=== PATIENT | male | born 1960 | race Caucasian/White ===

== ENCOUNTER 2020-10-09 05:41 | Inpatient (IN) | payer BC ==
[2020-10-09] MEDS: Nozin Nasal Sanitizer NASBOTH SCH ×3 (06:47→20:57)
[2020-10-09] MEDS ORDERED: Povidone-Iodine 10% Soln 118.25 ML Bottle ONE (06:47)
[2020-10-09] MEDS: Lactated Ringers 1,000 ML IV SCH ×2 (06:48→10:04)
[2020-10-09] MEDS ORDERED: fentaNYL 100 MCG/2 ML SDV ONE (07:19)
[2020-10-09] MEDS ORDERED: Propofol 200 MG/20 ML SDV ONE ×3 (07:19→09:02)
[2020-10-09] MEDS ORDERED: Midazolam 1 MG/ML 2 ML SDV ONE (07:19)
[2020-10-09] MEDS ORDERED: ceFAZolin 2 GM in Premix Bag 1 BAG IV ONE (07:30)
[2020-10-09] MEDS ORDERED: ePHEDrine 50 MG/ML SDV ONE (08:44)
[2020-10-09] MEDS ORDERED: Ondansetron 4 MG/2 ML SDV IVPUSH PRN (09:36)
[2020-10-09] MEDS ORDERED: Acetaminophen/HYDROcodone 325-5 MG Tab PO PRN (09:36)
[2020-10-09] MEDS ORDERED: Morphine 2 MG/ML SYRINGE IV PRN (09:36)
[2020-10-09] MEDS ORDERED: Acetaminophen 325 MG Tab PO PRN (09:36)
[2020-10-09] MEDS ORDERED: Magnesium Hydroxide 400 MG/5 ML Susp 30 ML Cup PO PRN (09:36)
[2020-10-09] MEDS ORDERED: ceFAZolin 1 GM in Sodium Chloride 0.9% 50 ML IV SCH (09:45)
[2020-10-09] MEDS ORDERED: Sodium Chloride 0.9% 1,000 ML IV SCH (09:45)
[2020-10-09] MEDS ORDERED: Colchicine 0.6 MG Tab PO PRN ×2 (09:47→10:28)
[2020-10-09] MEDS ORDERED: Ketorolac 30 MG/ML SDV IVPUSH SCH (10:00)
[2020-10-09] MEDS: Acetaminophen/oxyCODONE 325-5 MG Tab PO PRN ×3 (10:39→20:57)
--- NOTE | 2020-10-09 11:11 | CR ---
Pelvis 1V or 2V CLINICAL HISTORY: Left hip arthroplasty FINDINGS: Patient is status post the left hip total arthroplasty. Components appear well seated. There is some intra-articular and subcutaneous air. IMPRESSION: Status post total left hip arthroplasty
[2020-10-09] MEDS: Ketorolac 30 MG/ML SDV IVPUSH SCH ×2 (11:35→19:33)
[2020-10-09] MEDS: ceFAZolin 1 GM in Premix Bag 1 BAG IV SCH ×2 (13:08→21:04)
[2020-10-09] MEDS: Sodium Chloride 0.9% 1,000 ML IV SCH (18:14)
[2020-10-10] MEDS: Ketorolac 30 MG/ML SDV IVPUSH SCH ×2 (03:20→11:02)
[2020-10-10] MEDS: Sodium Chloride 0.9% 1,000 ML IV SCH (03:21)
[2020-10-10] MEDS: ceFAZolin 1 GM in Premix Bag 1 BAG IV SCH (06:17)
[2020-10-10] MEDS: Acetaminophen/oxyCODONE 325-5 MG Tab PO PRN (06:18)
[2020-10-10] MEDS: Nozin Nasal Sanitizer NASBOTH SCH (08:21)
[2020-10-10] MEDS ORDERED: Atenolol 25 MG Tab PO SCH (09:00)
[2020-10-10] MEDS ORDERED: Non-Formulary Medication 1 Each (Allopurinol [Zyloprim] 300 MG) PO SCH (09:00)
[2020-10-10] MEDS ORDERED: Enoxaparin 40 MG/0.4 ML Syringe SUBCUT SCH ×2 (09:00)
[2020-10-10] MEDS ORDERED: Non-Formulary Medication 1 Each (Atenolol [Atenolol] 100 MG) PO SCH (09:00)
[2020-10-10] MEDS ORDERED: Allopurinol 100 MG Tab PO SCH (09:00)
[2020-10-10] MEDS ORDERED: Docusate Sodium 100 MG Cap PO SCH ×2 (09:00)
--- NOTE | 2020-10-10 16:20 | PCM.DCSUM1 ---
Discharge Summary - Hospital Course HPI Initial Comments: 60 year old with severe left osteoarthritis admitted for total hip arthroplasty. Diagnosis: Stroke: No Modified [place] Scale: No Symptoms at All Modified [place] Scale Score: 0 - Discharge Data Discharge Date: 10/10/20 Discharge Disposition: Home, Self-Care 01 Condition: Good - Referral to Home Health Date of Face to Face Encounter: 10/10/20 Primary Care Physician: Adonis Moreno MD - Patient Summary/Data Operative Procedure(s) Performed: Left total hip Complications: None Consults: Consultations 10/09/20 09:36 PT Evaluation and Treatment [CONS] Routine Please Evaluate and Treat. PT Reason for Consult: Ambulation Discharge Disposition: Home w Home Health Special Instructions: posterior hip precautions, WBAT This query below is only for informational purposes and is not editable. 10/09/20 09:37 Consult to Case Management/Saw Offbearer [CONS] Routine Comment: Physician Instructions: Discharge placement post hip surgery Service(s) to be Consulted: Case Management PT Evaluation and Treatment [CONS] Routine Please Evaluate and Treat. PT Reason for Consult: Post op Ortho Surgery Hip Pending Discharge: Yes, 2- -3 days Special Instructions: Schedule first outpatient P.T. appointment 3 - 5 days post discharge This query below is only for informational purposes and is not editable. 10/09/20 09:43 OT Evaluation and Treatment [CONS] Routine Please Evaluate and Treat. OT Reason for Consult: ADL's Special Instructions: Status post Hip Surgery This query below is only for informational purposes and is not editable. Hospital Course: Underwent left total hip arthroplasty with no complications, tolerated the procedure well. No problems post op other than a transitory low urine output. Was ambulating the day of surgery. Did very well POD#1 and was independent getting out of bed and was able to do stairs with PT. Pain was controlled with po meds. Manzo removed morning of POD #1, voiding without a problem afterward. Dressing was changed prior to discharge, no drainage or other complications. May shower in AM. Discharged to home with home exercise program. Aspirin 325mg bid for DVT prophylaxis. Follow up in 2 weeks. - Patient Instructions Diet: Usual Diet as Tolerated Activity: Apply Ice, Full Weight Bearing Showering/Bathing: May Shower Wound/Incision Care: Keep Operative Site/Wound Site Clean and Dry Notify Provider of: Fever, Increased Pain, Swelling and Redness, Drainage - Discharge Plan *PRESCRIPTION DRUG MONITORING PROGRAM REVIEWED*: No *COPY OF PRESCRIPTION DRUG MONITORING REPORT IN PATIENT ANA: No Prescriptions/Med Rec: oxyCODONE HCl/Acetaminophen [Percocet 5-325 mg Tablet] 1 - 2 each PO Q6HR PRN #40 tablet PRN Reason: Pain Home Medications: Home Meds Acetaminophen [Tylenol Extra Strength] 500 mg PO Q6H PRN 06/12/20 [History] Colchicine 0.6 mg PO . DIRECTED PRN 06/12/20 [History] allopurinoL [Zyloprim] 300 mg PO DAILY 06/12/20 [History] atenoloL [Atenolol] 100 mg PO DAILY 06/12/20 [History] oxyCODONE HCl/Acetaminophen [Percocet 5-325 mg Tablet] 1 - 2 each PO Q6HR PRN #40 tablet 10/10/20 [Rx] Oxygen Therapy Mode: Room Air Referrals: Jessee Carrington MD [Physician] - 10/24/20 10:30 am ([facility] at the ER desk and arrive 15 minutes early.) - Discharge Summary/Plan Comment DC Time >30 min.: No - General Info Functional Status: Reports: Pain Controlled, Tolerating Diet, Ambulating, Urinating - Review of Systems General: Reports: No Symptoms HEENT: Reports: No Symptoms Pulmonary: Reports: No Symptoms Cardiovascular: Reports: No Symptoms Gastrointestinal: Reports: No Symptoms Genitourinary: Reports: No Symptoms Musculoskeletal: Reports: Leg Pain Skin: Reports: No Symptoms Neurological: Reports: No Symptoms Psychiatric: Reports: No Symptoms - Patient Data Vitals - Most Recent: Last Vital Signs Temp 36.4 C 10/10/20 10:59 Pulse 71 10/10/20 10:59 Resp 16 10/10/20 10:59 BP 109/63 10/10/20 10:59 Pulse Ox 98 10/10/20 10:59 Weight - Most Recent: 133.039 kg I&O - Last 24 hours: Intake & Output 10/10/20 10/10/20 10/10/20 06:59 14:59 22:59 Intake Total 1434 870 Output Total 900 400 Balance 534 470 Lab Results - Last 24 hrs: Laboratory Results - last 24 hr 10/10/20 Range/Units 05:52 WBC 8.4 (4.5-11.0) K/uL RBC 3.23 L (4.30-5.90) M/uL Hgb 9.6 L (12.0-15.0) g/dL Hct 31.6 L (40.0-54.0) % MCV 98 (80-98) fL MCH 30 (27-31) pg MCHC 30 L (32-36) % Plt Count 192 (150-400) K/uL Med Orders - Current: Current Medications Discontinued Medications Acetaminophen (Tylenol) 650 mg PO Q4H PRN PRN Reason: Pain/Fever Hydrocodone Bitart/Acetaminophen (Ellis 325-5 Mg) 2 tab PO Q4H PRN PRN Reason: Pain (mild 1-3) Allopurinol (Zyloprim) 300 mg PO DAILY [facility] Last Admin: 10/10/20 08:24 Dose: 300 mg Documented by: Aspirin (Ecotrin) 325 mg PO BID [facility] Atenolol (Tenormin) 100 mg PO DAILY [facility] Last Admin: 10/10/20 08:23 Dose: 100 mg Documented by: Bandage/Support Products ( Nasal Carbonating Stone Cleaner) 1 applic NASBOTH BID [facility] Last Admin: 10/09/20 13:03 Dose: Not Given Documented by: Bandage/Support Products ( Nasal Carbonating Stone Cleaner) 1 applic NASBOTH BID [facility] Stop: 10/16/20 21:01 Last Admin: 10/10/20 08:21 Dose: 1 applic Documented by: Colchicine (Colcrys) 0.6 mg PO . DIRECTED PRN PRN Reason: Other Colchicine (Colcrys) 0.6 - 1.2 mg PO ASDIRECTED PRN PRN Reason: Other Docusate Sodium (Colace) 100 mg PO DAILY [facility] Docusate Sodium (Colace) 100 mg PO DAILY [facility] Last Admin: 10/10/20 08:22 Dose: 100 mg Documented by: Enoxaparin Sodium (Lovenox) 40 mg SUBCUT DAILY [facility] Enoxaparin Sodium (Lovenox) 40 mg SUBCUT DAILY [facility] Last Admin: 10/10/20 08:23 Dose: 40 mg Documented by: Ephedrine Sulfate (Ephedrine Sulfate) Confirm Administered Dose 50 mg .ROUTE .STK-MED ONE Stop: 10/09/20 08:45 Fentanyl (Sublimaze) Confirm Administered Dose 100 mcg .ROUTE .STK-MED ONE Stop: 10/09/20 07:20 Cefazolin Sodium/Dextrose 2 gm (/ Premix) 50 mls @ 100 mls/hr IV ONETIME ONE Stop: 10/09/20 07:59 Last Admin: 10/09/20 07:41 Dose: 100 mls/hr Documented by: Lactated Ringer's (Ringers, Lactated) 1,000 mls @ 75 mls/hr IV ASDIRECTED [facility] Last Admin: 10/09/20 10:04 Dose: 75 mls/hr Documented by: Sodium Chloride (Normal Saline) 1,000 mls @ 125 mls/hr IV ASDIRECTED [facility] Cefazolin Sodium 1 gm/ Sodium (Chloride) 50 mls @ 200 mls/hr IV Q8H [facility] Stop: 10/10/20 01:59 Last Admin: 10/09/20 13:04 Dose: Not Given Documented by: Sodium Chloride (Normal Saline) 1,000 mls @ 125 mls/hr IV ASDIRECTED [facility] Last Admin: 10/10/20 03:21 Dose: 125 mls/hr Documented by: Cefazolin Sodium/Dextrose 1 gm (/ Premix) 50 mls @ 200 mls/hr IV Q8H [facility] Stop: 10/10/20 06:14 Last Admin: 10/10/20 06:17 Dose: 200 mls/hr Documented by: Ketorolac Tromethamine (Toradol) 30 mg IVPUSH Q8H [facility] Stop: 10/14/20 09:46 Last Admin: 10/09/20 13:04 Dose: Not Given Documented by: Ketorolac Tromethamine (Toradol) 30 mg IVPUSH Q8H [facility] Stop: 10/14/20 12:01 Last Admin: 10/10/20 11:02 Dose: 30 mg Documented by: Magnesium Hydroxide (Milk Of Magnesia) 30 ml PO Q6H PRN PRN Reason: Stool Softener Midazolam HCl (Versed 1 Mg/Ml) Confirm Administered Dose 2 mg .ROUTE .STK-MED ONE Stop: 10/09/20 07:20 Morphine Sulfate (Morphine) 2 mg IV Q1H PRN PRN Reason: Breakthrough Pain Non-Formulary Medication (Allopurinol [Zyloprim]) 300 mg PO DAILY [facility] Non-Formulary Medication (Atenolol [Atenolol]) 100 mg PO DAILY [facility] Ondansetron HCl (Zofran) 4 mg IVPUSH Q6H PRN PRN Reason: Nausea/Vomiting Oxycodone/Acetaminophen (Percocet 325-5 Mg) 0 tab PO Q6H PRN PRN Reason: Pain (moderate 4-6) Last Admin: 10/10/20 06:18 Dose: 2 tab Documented by: Povidone Iodine (Betadine 10% Soln) Confirm Administered Dose 1 ml .ROUTE .STK- MED ONE Stop: 10/09/20 06:48 Last Admin: 10/09/20 08:33 Dose: 30 ml Documented by: Propofol (Diprivan 20 Ml) Confirm Administered Dose 200 mg .ROUTE .STK-MED ONE Stop: 10/09/20 07:20 Propofol (Diprivan 20 Ml) Confirm Administered Dose 200 mg .ROUTE .STK-MED ONE Stop: 10/09/20 09:03 Propofol (Diprivan 20 Ml) Confirm Administered Dose 200 mg .ROUTE .STK-MED ONE Stop: 10/09/20 09:03 - Exam General: Reports: Alert, Oriented HEENT: Reports: Pupils Equal, Pupils Reactive, EOMI, Mucous Membr. Moist/[place] Neck: Reports: Supple Lungs: Reports: Clear to Auscultation, Normal Respiratory Effort Cardiovascular: Reports: Regular Rate, Regular Rhythm GI/Abdominal Exam: Normal Bowel Sounds, Soft, Non-Tender, No Distention (Male) Exam: Deferred Rectal (Males) Exam: Deferred Back Exam: Reports: Normal Inspection Extremities: Leg Pain, Limited Range of Motion Skin: Reports: Warm, Dry Wound/Incisions: Reports: Healing Well, No Drainage Neurological: Reports: No New Focal Deficit Psy/Mental Status: Reports: Alert, Normal Affect, Normal Mood
[2020-10-10] MEDS ORDERED: Aspirin 325 MG Tab.EC PO SCH (21:00)
--- NOTE | 2020-10-16 16:03 | OR ---
DATE OF PROCEDURE: 10/09/2020 SURGEON: Jessee Carrington MD PREOPERATIVE DIAGNOSIS: Osteoarthritis, left hip. POSTOPERATIVE DIAGNOSIS: Osteoarthritis, left hip, severe. PROCEDURE: Left total hip arthroplasty utilizing Marya Continuum Cup size 60, M/L taper stem size 16.25, with a 40 diameter femoral head and +3.5 mm neck length. ANESTHESIA: Spinal with sedation. INDICATIONS: [place] is a 60-year-old gentleman with a history of progressive left hip pain over the past several years, now significantly limiting his activities of daily living and range of motion. X-ray shows severe degenerative changes of the left hip with deformity of the femoral head, sclerosis, and complete loss of joint space. Now, admitted for left total hip arthroplasty. Risks, benefits, potential complications of the procedure were discussed. PROCEDURE IN DETAIL: After adequate anesthesia was obtained, patient was placed in lateral decubitus position and secured with a schmitt bag positioner. Left hip and leg were then prepped and draped in a sterile fashion. A lateral incision was made over the trochanter, carried down through the subcutaneous tissues and hemostasis obtained with electrocautery. Tensor fascia was split in line with its fibers and a Charnley retractor was placed. Leg was internally rotated and short external rotators were taken off the greater trochanter with electrocautery along with the posterior capsule which was then divided in a T-fashion. This allowed dislocation of the femoral head. The femoral neck was resected with an oscillating saw. Femoral head showed significant degenerative changes with complete articular cartilage loss and bone loss as well. Retractors were placed about the anterior and inferior acetabulum. Remaining labrum was excised. Soft tissues removed from the central portion of the acetabulum and acetabulum was then sequentially reamed to a size 60. A 60 Trabecular Metal Cup was then press-fit into position. An additional fixation obtained with an acetabular screw. A neutral liner was then placed. The hip was irrigated and attention turned to the femur. A box osteotome was used to remove the lateral femoral neck cortex. A hand awl was placed down the canal and the lateralizing reamer was utilized. The canal was then sequentially broached to a size 16.25. Trial reduction was made with a +3.5 neck length appearing to reproduce the limb length. After trialing was done, the broach was removed. The hip was irrigated and a 16.25 M/L taper stem was press-fit into position. This was trialed once again with the 40 diameter +3.5 neck length trial showed good stability in flexion, adduction, and internal rotation, full extension and apparently even limb lengths. The trial head was removed. The hip was irrigated. The trunnion was dried and the 40 diameter ceramic head was tapped into position. This was reduced and taken through range of motion with full extension and good stability. The hip was irrigated once again. This was followed by dilute Betadine solution, which was left in place for 2-1/2 minutes. Final irrigation was then done. Hip capsule was closed with #2 Ethibond. Tensor fascia was closed in a running locking fashion with #2 Ethibond. Skin was closed with 2-0 Vicryl and a running 3-0 Monocryl. Steri-Strips were applied. Sterile dressing was applied. The patient tolerated procedure well. There were no complications. He was taken from the operating room in stable condition. Jessee Carrington MD /[id number] [email or web address]
== END 2020-10-10 14:53 | disposition home or self-care (01) | DRG 301 ==
LOC: JP.SDSSCHI 05:41 → JP.SDS 05:41 → EDSTATUS 07:30 → JP.MS 09:36
PROVIDERS: ADMIT Specialist; ATTEND Specialist
PROC: 0SRB01A Replacement of Left Hip Joint with Metal Synthetic Substitute, Uncemented, Open Approach (ICD-10-PCS; principal; 2020-10-09)
DX: M16.12 Unilateral primary osteoarthritis, left hip (principal); M10.9 Gout, unspecified; I12.9 Hypertensive chronic kidney disease with stage 1 through stage 4 chronic kidney disease, or unspecified chronic kidney disease; N18.30 Chronic kidney disease, stage 3 unspecified; Z88.8 Allergy status to other drugs, medicaments and biological substances; Z79.899 Other long term (current) drug therapy
CPT/HCPCS: 36415; 72170; 72170-26; 85027; 86850; 86900; 86901; 97110-GP; 97116-GP; 97161-GP; 97165-GO; 97530-GP; 97535-GP; A9270-GY; C1713; C1776; J0690; J1650; J1885; J2250; J2704; J3010; J7030; J7120